=== PATIENT | male | born 1970 | race Caucasian/White ===

== ENCOUNTER → 2018-01-13 14:55 | Outpatient (CLI) | payer OTHER, SELFPAY ==
[2018-01-13 18:01] LABS: Hemoglobin A1c 7.1 % (4.2-6.3)
[2018-01-13 18:02] LABS: Anion Gap 11 (5-15); BUN 21 mg/dL (7-18); Calcium,Total 9.1 mg/dL (8.5-10.1); Chloride 104 mmol/L (98-107); EST Glomerular Filtration Rate 85 mL/min (>60); Est Glom Filt Rate - Afr Amer 103 mL/min (>60); Glucose 88 mg/dL (74-106); Potassium 3.8 mmol/L (3.5-5.1); Sodium Level 141 mmol/L (136-145)
[2018-01-13 19:39] LABS: Absolute Lymphocyte Count 2.08 X10^3/ul (0.83-4.51); Absolute Neutrophil Count 4.4 X10^3/uL (2.0-7.7); Basophil# 0.05 X10^3/uL; Basophil% 0.7 % (0-1); Eosinophil# 0.33 X10^3/uL; Eosinophils% 4.4 % (0-5); Hematocrit 44.7 % (40-54); Hemoglobin 15.8 g/dl (13.0-16.5); Lymphocyte # 2.08 X10^3/ul (4.0); Mean Corp Hgb Conc 35.3 g/gl (32-36); Mean Corpuscular Hgb 29.2 pg (27.0-32.0); Mean Corpuscular Volume 82.5 fL (80-94); Mean Platelet Vol. 9.8 fl (6.2-12.0); Monocyte# 0.52 X10^3/uL; Neutrophil # 4.43 X10^3/uL (2.7-7.7); Neutrophil % 59.6 % (47-70); Platelet Count 364 K/mm3 (150-450); RBC Distribution Width CV 12.9 % (11.6-14.6); RBC Distribution Width SD 38.9 fl (35.1-43.9); Red Blood Count 5.42 M/mm3 (4.6-6.2); White Blood Count 7.4 K/mm3 (4.4-11.0)
[2018-01-13 19:46] LABS: POSITIVE COUNT NO; POSITIVE DIFFERENTIAL NO; POSITIVE MORPHOLOGY NO
== END ==
PROVIDERS: Visit Provider Family Medicine
DX: E11.9 Type 2 diabetes mellitus without complications (principal)
CPT/HCPCS: 36415; 80048; 83036; 85025

== ENCOUNTER → 2021-01-30 09:53 | Outpatient (CLI) | payer BC, SELFPAY ==
[2021-01-30 12:09] LABS: Hematocrit 48.2 % (40-54); Hemoglobin 16.1 g/dL (13.0-16.5); Mean Corp Hgb Conc 33.4 g/dL (32-36); Mean Corpuscular Hgb 27.9 pg (27.0-32.0); Mean Corpuscular Volume 83.5 fL (80-94); Mean Platelet Vol. 9.6 fl (6.2-12.0); Platelet Count 370 K/mm3 (150-450); RBC Distribution Width CV 12.4 % (11.6-14.6); RBC Distribution Width SD 37.2 fl (35.1-43.9); Red Blood Count 5.77 M/mm3 (4.6-6.2); White Blood Count 6.7 K/mm3 (4.4-11.0)
[2021-01-30 12:24] LABS: Hemoglobin A1c 7.6 % (3.8-5.6)
[2021-01-30 12:27] LABS: ALB/GLOB Ratio 1.1 RATIO (0.9-2.4); AST(SGOT) 30 U/L (15-37); Alanine Aminotransfer ALT/SGPT 45 U/L (16-61); Albumin, Serum 3.9 g/dL (3.2-5.0); Alkaline Phosphatase 100 U/L (45-117); Anion Gap 5 (5-15); BUN 22 mg/dL (7-18); BUN/Creat Ratio 22.7 RATIO (10-20); Calcium,Total 9.1 mg/dL (8.5-10.1); Chloride 105 mmol/L (98-107); Cholesterol 182 mg/dL (200); Creatinine, Serum 0.97 mg/dL (0.70-1.30); EST Glomerular Filtration Rate 87 mL/min (>60); Est Glom Filt Rate - Afr Amer 105 mL/min (>60); Globulin 3.7 g/dL (2.2-4.2); Glucose 141 mg/dL (74-106); High Density Lipoprotein 43 mg/dL; Potassium 4.4 mmol/L (3.5-5.1); Protein, Total 7.6 g/dL (6.4-8.2); Sodium Level 137 mmol/L (136-145); T4 Free Direct 1.31 ng/dL (0.76-1.46); Thyroid Stim Hormone (TSH) 1.91 uIU/mL (0.358-3.74); Triglycerides 191 mg/dL; Very Low Density Lipoprotein 38 mg/dL (5-40)
== END ==
PROVIDERS: PCP Nurse Practitioner Family; Referring Provider Nurse Practitioner Family; Visit Provider Nurse Practitioner Family
DX: E03.9 Hypothyroidism, unspecified (principal); Z13.220 Encounter for screening for lipoid disorders; E11.9 Type 2 diabetes mellitus without complications; I10 Essential (primary) hypertension
CPT/HCPCS: 36415; 80053; 80061; 83036; 84439; 84443; 85027

== ENCOUNTER 2021-08-07 09:30 | Outpatient (CLI) | payer BC, SELFPAY ==
[2021-08-07 12:08] LABS: Hematocrit 47.3 % (40-54); Hemoglobin 16.5 g/dL (13.0-16.5); Mean Corp Hgb Conc 34.9 g/dL (32-36); Mean Corpuscular Volume 83.1 fL (80-94); Mean Platelet Vol. 9.7 fl (6.2-12.0); Platelet Count 360 K/mm3 (150-450); RBC Distribution Width CV 12.2 % (11.6-14.6); RBC Distribution Width SD 37.3 fl (35.1-43.9); Red Blood Count 5.69 M/mm3 (4.6-6.2); White Blood Count 5.5 K/mm3 (4.4-11.0)
[2021-08-07 13:11] LABS: ALB/GLOB Ratio 1.1 RATIO (0.9-2.4); AST(SGOT) 17 U/L (15-37); Alanine Aminotransfer ALT/SGPT 28 U/L (16-61); Albumin, Serum 3.8 g/dL (3.2-5.0); Alkaline Phosphatase 87 U/L (45-117); Anion Gap 4 (5-15); BUN 27 mg/dL (7-18); Calcium,Total 8.7 mg/dL (8.5-10.1); Chloride 105 mmol/L (98-107); Cholesterol 173 mg/dL (200); EST Glomerular Filtration Rate 84 mL/min (>60); Est Glom Filt Rate - Afr Amer 101 mL/min (>60); Globulin 3.6 g/dL (2.2-4.2); Glucose 117 mg/dL (74-106); High Density Lipoprotein 43 mg/dL; PSA,Total - Annual Screen 1.46 ng/mL (0.00-4.00); Protein, Total 7.4 g/dL (6.4-8.2); Sodium Level 138 mmol/L (136-145); T4 Free Direct 1.46 ng/dL (0.76-1.46); Triglycerides 107 mg/dL; Very Low Density Lipoprotein 21 mg/dL (5-40)
[2021-08-07 14:07] LABS: Hemoglobin A1c 7.5 % (3.8-5.6)
== END 2021-08-07 23:59 | disposition home or self-care (01) ==
LOC: MTLAB 09:32
PROVIDERS: PCP Nurse Practitioner Family; Referring Provider Nurse Practitioner Family; Visit Provider Nurse Practitioner Family
DX: I10 Essential (primary) hypertension (principal); E11.9 Type 2 diabetes mellitus without complications; E78.1 Pure hyperglyceridemia; E03.9 Hypothyroidism, unspecified; Z12.5 Encounter for screening for malignant neoplasm of prostate
CPT/HCPCS: 36415; 80053; 80061; 83036; 84153; 84439; 84443; 85027; G0103

== ENCOUNTER 2022-04-04 08:30 | Outpatient (CLI) | payer BC, SELFPAY ==
[2022-04-04 10:05] LABS: Hemoglobin A1c 7.9 % (3.8-5.6)
[2022-04-04 10:06] LABS: ALB/GLOB Ratio 1.2 RATIO (0.9-2.4); AST(SGOT) 14 U/L (15-37); Alanine Aminotransfer ALT/SGPT 30 U/L (16-61); Albumin, Serum 3.9 g/dL (3.2-5.0); Alkaline Phosphatase 89 U/L (45-117); Anion Gap 5 (5-15); BUN 24 mg/dL (7-18); BUN/Creat Ratio 22.4 RATIO (10-20); Calcium,Total 9.1 mg/dL (8.5-10.1); Chloride 105 mmol/L (98-107); Cholesterol 207 mg/dL (200); Creatinine, Serum 1.07 mg/dL (0.70-1.30); EST Glomerular Filtration Rate 77 mL/min (>60); Est Glom Filt Rate - Afr Amer 93 mL/min (>60); Globulin 3.3 g/dL (2.2-4.2); Glucose 146 mg/dL (74-106); High Density Lipoprotein 44 mg/dL; Potassium 4.4 mmol/L (3.5-5.1); Protein, Total 7.2 g/dL (6.4-8.2); Sodium Level 140 mmol/L (136-145); T4 Free Direct 1.26 ng/dL (0.76-1.46); Thyroid Stim Hormone (TSH) 2.78 uIU/mL (0.358-3.74); Triglycerides 181 mg/dL; Very Low Density Lipoprotein 36 mg/dL (5-40)
== END 2022-04-04 23:59 | disposition home or self-care (01) ==
LOC: MTLAB 08:32
PROVIDERS: PCP Nurse Practitioner Family; Referring Provider Nurse Practitioner Family; Visit Provider Nurse Practitioner Family
DX: E11.9 Type 2 diabetes mellitus without complications (principal); I10 Essential (primary) hypertension; E78.1 Pure hyperglyceridemia; E03.9 Hypothyroidism, unspecified
CPT/HCPCS: 36415; 80053; 80061; 83036; 84439; 84443

== ENCOUNTER → 2022-11-07 | Outpatient (CLI) | payer BC, SELFPAY ==
[2022-11-07 12:01] LABS: AST(SGOT) 19 U/L (15-37); Alanine Aminotransfer ALT/SGPT 29 U/L (16-61); Albumin, Serum 3.6 g/dL (3.2-5.0); Alkaline Phosphatase 86 U/L (45-117); Anion Gap 5 (5-15); BUN 25 mg/dL (7-18); BUN/Creat Ratio 24.8 RATIO (10-20); Chloride 107 mmol/L (98-107); Cholesterol 197 mg/dL (200); Creatinine, Serum 1.01 mg/dL (0.70-1.30); EST Glomerular Filtration Rate 82 mL/min (>60); Est Glom Filt Rate - Afr Amer 99 mL/min (>60); Globulin 3.5 g/dL (2.2-4.2); Glucose 139 mg/dL (74-106); High Density Lipoprotein 44 mg/dL; PSA,Total - Annual Screen 1.39 ng/mL (0.00-4.00); Potassium 4.2 mmol/L (3.5-5.1); Protein, Total 7.1 g/dL (6.4-8.2); Sodium Level 139 mmol/L (136-145); Thyroid Stim Hormone (TSH) 2.82 uIU/mL (0.358-3.74); Triglycerides 93 mg/dL; Very Low Density Lipoprotein 19 mg/dL (5-40)
[2022-11-07 12:45] LABS: Hemoglobin A1c 9.2 % (3.8-5.6)
== END | disposition home or self-care (01) ==
LOC: MTLAB 09:30
PROVIDERS: PCP Nurse Practitioner Family; Referring Provider Nurse Practitioner Family; Visit Provider Nurse Practitioner Family
DX: E11.9 Type 2 diabetes mellitus without complications (principal); I10 Essential (primary) hypertension; E78.1 Pure hyperglyceridemia; E03.9 Hypothyroidism, unspecified; Z12.5 Encounter for screening for malignant neoplasm of prostate
CPT/HCPCS: 36415; 80053; 80061; 83036; 84153; 84439; 84443; G0103

== ENCOUNTER → 2023-06-30 | Outpatient (CLI) | payer BC, SELFPAY ==
--- NOTE | 2023-06-30 11:41 | EKG12_ITS ---
Test Reason : PRE OP Blood Pressure : / mmHG Vent. Rate : 087 BPM Atrial Rate : 087 BPM P-R Int : 148 ms QRS Dur : 094 ms QT Int : 352 ms P-R-T Axes : 067 074 047 degrees QTc Int : 423 ms Normal sinus rhythm Normal ECG Confirmed by SONDRA SERNA, CLINT ([id number]), city editor JOSE E MCGILL ([id number]) on 07/01/2023 9:01:34 AM Referred By: Kenny Almodovar Confirmed By:CLINT AMARO MD
[2023-06-30 11:46] LABS: Hemoglobin 16.3 g/dL (13.0-16.5); Mean Corpuscular Hgb 28.6 pg (27.0-32.0); Mean Corpuscular Volume 84.2 fL (80-94); Platelet Count 362 K/mm3 (150-450); RBC Distribution Width CV 12.2 % (11.6-14.6); RBC Distribution Width SD 37.3 fl (35.1-43.9); White Blood Count 7.5 K/mm3 (4.4-11.0)
[2023-06-30 12:19] LABS: Anion Gap 6 (5-15); BUN 20 mg/dL (7-18); BUN/Creat Ratio 17.4 RATIO (10-20); Calcium,Total 9.4 mg/dL (8.5-10.1); Chloride 106 mmol/L (98-107); Creatinine, Serum 1.15 mg/dL (0.70-1.30); EST Glomerular Filtration Rate 71 mL/min (>60); Est Glom Filt Rate - Afr Amer 85 mL/min (>60); Glucose 127 mg/dL (74-106); Potassium 4.6 mmol/L (3.5-5.1); Sodium Level 141 mmol/L (136-145)
== END | disposition home or self-care (01) ==
LOC: PSN 11:29
PROVIDERS: PCP Nurse Practitioner Family; Referring Provider Otolaryngology; Visit Provider Otolaryngology
DX: Z01.812 Encounter for preprocedural laboratory examination (principal); Z01.811 Encounter for preprocedural respiratory examination
CPT/HCPCS: 36415; 80048; 85027; 93005

== ENCOUNTER → 2023-07-10 | Outpatient (CLI) | payer BC, SELFPAY ==
--- NOTE | 2023-07-10 | ETH_PTH ---
PATHOLOGY RESULTS PATIENT: JAH DIAZ LOC: [facility] U#:[id number] AGE/SX: 52/M ROOM: RE07/10/[address]: Dr. Kenny Almodovar MD : 1970 BED: DIS: 07/10/2023 SPEC #: [id number] RECD: 07/13/23 08:09 STATUS: HESHAM JOSE M #: [id number] SHANELL: 07/10/23 00:[address]: Kenny Almodovar DEPT: SURGICAL PATHOLOGY RECD BY: Yudith Mclain ENTERED: 07/13/23 08:10 SP TYPE: ETH TISS OTHR DR: Jorge Alberto Purdy, [facility] Tissues: Ethmoid sinus, NOS Procedures: Decalcification bone/plaque Surgery Specimen Level IV HEADER OPERATION: Septoplasty, submucous resection of turbinates PRE-OP DIAGNOSIS: Nasal congestion, deviated nasal septum, hypertrophy of nasal turbinates TISSUE SUBMITTED: Nasal septum MICROSCOPIC DIAGNOSIS Nasal septum, septoplasty: Benign respiratory mucosa with mild chronic inflammation. Fragments of benign hyaline cartilage and bone (clinically deviated septum). AM:jose 07/16/2023 MICROSCOPIC DESCRIPTION Slides are reviewed. GROSS DESCRIPTION Received in fixative is one container labeled with the patient's name and designated nasal septum. The specimen consists of multiple irregular fragments of light downey bone and cartilage that in aggregate measure 5.0 x 3.5 x 0.2 cm. The specimen is totally submitted in two cassettes after decalcification. / AM:jose 07/13/2023 TC:3 CPT: 10868, 11046
== END | disposition home or self-care (01) ==
LOC: LABSPEC 11:35
PROVIDERS: PCP Nurse Practitioner Family; Referring Provider Otolaryngology; Visit Provider Otolaryngology
DX: R09.81 Nasal congestion (principal); J34.2 Deviated nasal septum; J34.3 Hypertrophy of nasal turbinates
CPT/HCPCS: 88305; 88311

== ENCOUNTER → 2023-07-29 | Outpatient (CLI) | payer BC, SELFPAY ==
[2023-07-29 10:48] LABS: AST(SGOT) 24 U/L (15-37); Alanine Aminotransfer ALT/SGPT 29 U/L (16-61); Albumin, Serum 3.7 g/dL (3.2-5.0); Alkaline Phosphatase 96 U/L (45-117); Anion Gap 6 (5-15); BUN 23 mg/dL (7-18); Chloride 108 mmol/L (98-107); Cholesterol 188 mg/dL (200); Creatinine, Serum 0.96 mg/dL (0.70-1.30); EST Glomerular Filtration Rate 87 mL/min (>60); Est Glom Filt Rate - Afr Amer 105 mL/min (>60); Globulin 3.7 g/dL (2.2-4.2); Glucose 113 mg/dL (74-106); High Density Lipoprotein 50 mg/dL; Potassium 3.9 mmol/L (3.5-5.1); Protein, Total 7.4 g/dL (6.4-8.2); Sodium Level 140 mmol/L (136-145); Triglycerides 82 mg/dL; Very Low Density Lipoprotein 16 mg/dL (5-40)
[2023-07-29 11:34] LABS: Microalbumin,Random Urine 33.1 mg/L (NO RANGE EST.); Microalbumin:Creatinine Ratio 13.6 mg/g CRE (<30 mg/g CRE)
== END | disposition home or self-care (01) ==
PROVIDERS: PCP Nurse Practitioner Family; Referring Provider Nurse Practitioner Family; Visit Provider Nurse Practitioner Family
DX: E11.9 Type 2 diabetes mellitus without complications (principal); I10 Essential (primary) hypertension; E78.1 Pure hyperglyceridemia; E03.9 Hypothyroidism, unspecified
CPT/HCPCS: 36415; 80053; 80061; 82043; 82570; 83036; 84439; 84443

== ENCOUNTER 2024-04-20 15:13 | Outpatient (CLI) | payer BC, SELFPAY ==
--- NOTE | 2024-04-20 10:15 | LES_PTH ---
PATIENT: JAH DIAZ LOC: [facility] U#:[id number] AGE/SX: 53/M ROOM: RE04/20/[address]: Dr. Kenny Almodovar MD : 1970 BED: DIS: 04/20/2024 SPEC #: [id number] RECD: 04/21/24 12:01 STATUS: HESHAM JOSE M #: [id number] SHANELL: 04/20/24 10:[address]: Kenny Almodovar DEPT: SURGICAL PATHOLOGY RECD BY: Marine Herman ENTERED: 04/21/24 12:01 SP TYPE: Lesion OTHR DR: Jorge Alberto Purdy, SUPERINTENDENT [employer] Tissues: Skin of face, NOS Procedures: Surgery Specimen Level IV HEADER OPERATION: Permanent pathology PRE-OP DIAGNOSIS: Right face biopsy (skin) TISSUE SUBMITTED: Right face biopsy MICROSCOPIC DIAGNOSIS Right face lesion, biopsy: Basal cell carcinoma, nodular type, extending to the peripheral biopsy margin. See comment. 04/28/2024 COMMENT The specimen is sent to [facility] for expert opinion, reviewed by Dr. Maldonado and the above diagnosis is rendered. The complete report is viewable in the patient's EMR. This case has been reviewed in consultation with Dr. Lozano who concurs with the above diagnosis. IDC:PW MICROSCOPIC DESCRIPTION Slides are reviewed. GROSS DESCRIPTION Received in fixative is one container labeled with the patient's name and designated Face biopsy. The specimen consists of a piece of downey-brown skin measuring 0.2 x 0.2 x 0.1cm. The entire specimen is submitted in one cassette. 04/21/2024 TC:0 [facility]:[id number]
== END 2024-04-20 23:59 | disposition home or self-care (01) ==
LOC: LABSPEC 15:14
PROVIDERS: PCP Nurse Practitioner Family; Referring Provider Otolaryngology; Visit Provider Otolaryngology
DX: Z00.00 Encounter for general adult medical examination without abnormal findings (principal)
CPT/HCPCS: 88305

== ENCOUNTER 2024-05-16 06:53 | Day surgery (SDC) | payer BC, SELFPAY ==
[2024-05-16] VITALS (8 sets, daily range): BP systolic 115–130; BP diastolic 75–101; PULSE 68–80; RESP 14–18; TEMP 36.1–36.6; O2SAT 92–95; BMI 29.4
--- NOTE | 2024-05-16 07:09 | DS.PCM_ITS ---
Providers Primary Care Physician: Jorge Alberto Purdy, [employer] MODEL [employer]KER [employer] Reason For Visit: Excision Right Neck Basal Cell Carcinoma with froz Medications at Discharge Home Medications calcium 600 mg-D3 800 unit-mag11 50 qs-akjx-ixpvmn-princess-s.borat tablet 1 tab PO DAILY 05/13/24 insulin glargine 100 unit/mL (3 mL) subcutaneous pen (Lantus Solostar U-100 Insulin) 50 unit subcut QHS 05/13/24 levocetirizine 5 mg tablet 5 mg PO DAILY PRN allergy symptoms 05/13/24 levothyroxine 100 mcg tablet 100 mcg PO DAILY 05/13/24 D/C Instructions Discharge Diet: No restrictions Discharge Activity: Return to Normal Activity Additional Activity Instructions: Remove and discard dressing tomorrow. Apply antibiotic ointment twice a day to the sutures. May get the incision wet on Thursday. DC O2, CPAP, BIPAP Needs Home O2 Discharge instructions: No Please Follow Up With: Kenny Almodovar MD When: 10 days Meaningful Use Info Meaningful Use Meaningful Use Diagnoses (Choose all that apply): None applicable Ischemic Stroke Statin Dosing Therapy Reference: STATIN DOSE THERAPY REFERENCE: * Patients > 75 years receive moderate or high dose statin therapy. * Patients 75 years or YOUNGER should receive HIGH intensity statin dose unless contraindicated. You will be required to document reason for non-treatment if statin daily dose does not meet guidelines. HIGH DOSE STATIN THERAPY DAILY Atorvastatin > than or = to 40 mg Rosuvastatin > than or = to 20 mg Amlodipine + Atorvastatin > than or = to 2.5/40 mg Ezetimibe + Simvastatin 10/80 mg Simvastatin 80mg Discharge Plan Admission Attending Provider: Kenny Almodovar Primary Care Provider: Jorge Alberto Purdy NP Instructions Print Language: Taiwanese Discharge Orders/Prescriptions Prescriptions: No Action levothyroxine 100 mcg tablet 100 mcg PO DAILY levocetirizine 5 mg tablet 5 mg PO DAILY PRN (Reason: allergy symptoms) [id number]-soex-dyw-kjjg-vkz 600 mg calcium- 800 unit-50 mg tablet 1 tab PO DAILY insulin glargine [Lantus Solostar U-100 Insulin] 100 unit/mL (3 mL) insulin pen 50 unit subcut QHS Referrals / Follow Up: Jorge Alberto Purdy [employer] MODEL MAKER [employer] TESTER, [employer] [Primary Care Provider] - Disposition Disposition (needs filled in before D/C Order can be placed): Home, Self Care
--- NOTE | 2024-05-16 07:25 | PCM.PRE.AN2 ---
ASA Classification* ASA Classification ASA Classification: 2 Assessment & Plan Anesthesia* Anesthesia Assessment Anesthesia Assessment: Discussed sedation and/or anesthesia options, risks, benefits, and alternatives with patient/parents/legal guardian/POA. Questions invited. The patient/parents/legal guardian/POA seems to understand and agrees to proceed with anesthesia plan. Reviewed the physical assessment, medical history, allergy history and patient home medications list prior to surgery/procedure/anesthetic and documented any changes. Performed airway and anesthesia risk assessments. Anesthesia Type Anesthesia Type: General Anesthesia Focused Assessment* Airway Assessment Mouth opens: >3 cm Mallampati Score: II Focused Labs Anesthesia Preop lab: CBC WBC 7.5 K/mm3 (4.4-11.0) 06/30/23 11:31 RBC 5.70 M/mm3 (4.6-6.2) 06/30/23 11:31 Hgb 16.3 g/dL (13.0-16.5) 06/30/23 11:31 Hct 48.0 % (40-54) 06/30/23 11:31 Plt Count 362 K/mm3 (150-450) 06/30/23 11:31 CHEMISTRY Potassium 3.9 mmol/L (3.5-5.1) 07/29/23 07:40 Sodium 140 mmol/L (136-145) 07/29/23 07:40 BUN 23 mg/dL (7-18) H 07/29/23 07:40 Creatinine 0.96 mg/dL (0.70-1.30) 07/29/23 07:40 Glucose 113 mg/dL (74-106) H 07/29/23 07:40 TSH 2.90 uIU/mL (0.358-3.74) 07/29/23 07:40 COAG Pre-Assessment Diagnosis/Proposed Procedure Planned Operative Procedure(s): EXCISION RIGHT NECK BASAL CELL CARCINOMA WITH FROZEN SECTION Anesthesia History Anesthesia History - technical mgr: Anesthesia History - technical mgr Hx Hospitalization No 05/13/24 08:12 Any Problems With Anesthesia No 05/13/24 08:12 Cholinesterase deficiency No 05/13/24 08:12 You/Your Family Experience No 05/13/24 08:12 fever (hyperthermia) with Relationship Recent Exposure to Contagious No 03/21/15 20:50 Disease Does patient have nerve No 05/13/24 08:12 stimulator Patient instructed to have device shut off --Does patient have Pacemaker or ICD? When Was Last Pacemaker Check QUESTION #4 FULL TEXT: You/Your Family Experience fever (hyperthermia) with Anesthesia Last Oral Intake Last Oral intake: Last Oral Intake NPO since Meds taken in AM with sips of water? Meds patient instructed to take am of surgery PONV PONV - technical mgr: PONV - technical mgr Female No 05/13/24 08:12 HX of Motion Sickness No 05/13/24 08:12 HX of N/V After Surgery No 05/13/24 08:12 Non-Smoker Yes 05/13/24 08:12 Duration of Surgery greater No 05/13/24 08:12 than 60 minutes Number of Risk Factors 1 05/13/24 08:12 PONV Score Low Risk 05/13/24 08:12 Height & Weight Height & Weight: Anesthesia: Height & Weight Height 6 ft 2 in 11/14/15 18:37 Respiratory Assessment Respiratory Assessment - technical mgr: Respiratory Tract Infection Hx - technical mgr Hx Respiratory Tract Infection No 05/13/24 08:12 STOP Sleep Apnea STOP Sleep Apnea - technical mgr: STOP Sleep Apnea - technical mgr Hx Hypertension No 05/13/24 08:12 Hx Sleep Apnea No 05/13/24 08:12 CPAP No 03/21/15 23:45 BIPAP No 03/21/15 23:45 Do you snore loudly (louder No 05/13/24 08:12 than talking or can be heard Do you often feel tired/ No 05/13/24 08:12 fatigued/ sleepy during daytime? Has anyone observed you stop No 05/13/24 08:12 breathing during sleep? STOP Results Negative 05/13/24 08:12 QUESTION #5 FULL TEXT : Do you snore loudly (louder than talking or can be heard through closed doors)? Tobacco Use History Tobacco Use History - technical mgr: Tobacco Use History - technical mgr Tobacco Use Smoking Status Never smoker 05/13/24 08:12 Hx Tobacco Use No 05/13/24 08:12 Years Smoking Packs Smoked per Day Smoking Cessation Date was within the last 15 years Hx Smoking Cessation Date Hx Smoking Cessation Counseling Hematologic Medial History Hematologic Hx - technical mgr: Hematologic Medical Hx - telephone mechanic Hx of Blood Transfusion No 05/13/24 08:12 Hx of Transfusion in last 3 No 05/13/24 08:12 Months Date of Last Transfusion (if within last 3 months) Ever experience any problems No 05/13/24 08:12 with transfusion(s)? Specify any problems Hx of Preganancy in last 3 N/A 05/13/24 08:12 Months Nurse Filling Out Transfusion DSCHRIBER 05/13/24 08:12 & Questions: Date: 05/13/24 05/13/24 08:12 Time: 08:14 05/13/24 08:12 Patient unable to answer at this time (ie. confused, unrespo /Reproduction History /Reproductive History - technical mgr: /Reproductive Hx- technical mgr Hx Now No 05/13/24 08:12 Gestational Age (in weeks): EDC: Hx Hx Para Hx Section SAB No 05/13/24 08:12 Active Medications Active Medications: Current Medications Generic Name Dose Route Start Last Admin Trade Name Freq PRN Reason Stop Dose Admin Sodium Chloride 1,000 mls @ 15 mls/hr 05/16/24 07:10 IV 05/19/24 01:49 .Q48H SUKUMAR Protocol PFSH Medical History Cancer Alcohol use Insulin dependent diabetes mellitus Thyroid disease Injury of back Non-smoker Home Medications ?Medication ?Instructions ?Recorded ?Last Taken ?Type calcium 600 mg-D3 800 unit-mag11 1 tab PO DAILY 05/13/24 Unknown History [address]-ligx-wexzgd-princess-s.borat tablet insulin glargine 100 unit/mL (3 50 unit subcut QHS 05/13/24 Unknown History mL) subcutaneous pen (Lantus Solostar U-100 Insulin) levocetirizine 5 mg tablet 5 mg PO DAILY PRN allergy symptoms 05/13/24 Unknown History levothyroxine 100 mcg tablet 100 mcg PO DAILY 05/13/24 Unknown History Allergy/AdvReac Type Severity Reaction Status Date / Time No Known Allergies Allergy Verified 05/16/24 07:21 Surgical History Hx of nasal septoplasty History of surgery History of cochlear implant Hx of appendectomy Hx of discectomy Social History Smoking Status: Never smoker Review of Systems (Anesthesia) ROS Narrative System reviewed and no additional complaints, except as documented.
[2024-05-16] MEDS: 0.9% Normal Saline (1000mL) 1,000 ML 15 ML IV (07:27)
[2024-05-16 07:49] LABS: Hematocrit 46.5 % (40-54); Mean Corp Hgb Conc 34.4 g/dL (32-36); Mean Corpuscular Hgb 28.4 pg (27.0-32.0); Mean Corpuscular Volume 82.4 fL (80-94); Mean Platelet Vol. 9.1 fl (6.2-12.0); Platelet Count 322 K/mm3 (150-450); RBC Distribution Width CV 12.4 % (11.6-14.6); RBC Distribution Width SD 37.2 fl (35.1-43.9); Red Blood Count 5.64 M/mm3 (4.6-6.2); White Blood Count 5.2 K/mm3 (4.4-11.0)
[2024-05-16 07:56] LABS: Bedside Glucose 154 mg/dL (74-106)
[2024-05-16 08:05] LABS: Anion Gap 5 (5-15); BUN 25 mg/dL (7-18); BUN/Creat Ratio 26.8 RATIO (10-20); Calcium,Total 8.8 mg/dL (8.5-10.1); Chloride 107 mmol/L (98-107); Creatinine, Serum 0.93 mg/dL (0.70-1.30); EST Glomerular Filtration Rate 89 mL/min (>60); Est Glom Filt Rate - Afr Amer 108 mL/min (>60); Estimated Creatinine Clearance 116.72 ml/min; Glucose 174 mg/dL (74-106); Potassium 3.8 mmol/L (3.5-5.1); Sodium Level 138 mmol/L (136-145)
--- NOTE | 2024-05-16 08:30 | LES_PTH ---
PATIENT: JAH DIAZ LOC: [facility] [place] U#:[id number] AGE/SX: 53/M ROOM: RE05/16/[address]: Dr. Kenny Almodovar MD : 1970 BED: DIS: 05/16/2024 SPEC #: [id number] RECD: 05/16/24 09:37 STATUS: HESHAM JOSE M #: [id number] SHANELL: 05/16/24 08:[address]: Kenny Almodovar DEPT: SURGICAL PATHOLOGY RECD BY: Joe Root ENTERED: 05/16/24 09:38 SP TYPE: Lesion OTHR DR: Jorge Alberto Purdy, DENTAL TECHNOLOGIST-C Tissues: A - Skin of neck, NOS B - Skin of neck, NOS C - Skin of neck, NOS Procedures: Frozen Section (charge) Frozen Section Add'l ([facility]) Surgery Specimen Level IV HEADER OPERATION: Excision right neck basal cell carcinoma with frozen section PRE-OP DIAGNOSIS: Basal cell carcinoma of skin, right neck TISSUE SUBMITTED: A- Right neck basal cell carcinoma *long stitch- anterior margin at 3o'clock, short stitch- superior margin at 12o'clock, B- Additional anterior margin, C- Additional deep margin FROZEN SECTION DIAGNOSIS A. Right neck lesion, excisional biopsy: Basal cell carcinoma. 3o'clock and deep margin are positive for tumor. B. Additional anterior margin: Negative for carcinoma. C. Additional deep margin: Negative for carcinoma. SJ. 05/16/2024 MICROSCOPIC DIAGNOSIS A. Right neck lesion, excisional biopsy: Basal cell carcinoma. Solar elastosis. See comment. B. Additional anterior margin: Negative for carcinoma. Solar elastosis. C. Additional deep margin: Negative for carcinoma. SJ. 05/17/2024 COMMENT A. The tumor is present at 3o'clock (anterior margin) and deep margins of the specimen. Margins are positive on the frozen sections slides. Please also make reference to previous specimen [id number] right wrist lesion, biopsy with diagnosis of basal cell carcinoma, nodular type. MICROSCOPIC DESCRIPTION Slides are reviewed. GROSS DESCRIPTION A. Received fresh for frozen section diagnosis labeled with the patient's name is a specimen designated Right neck lesion. The specimen consists of a piece of downey-white skin ellipse measuring 3.8 x 1.5 x 0.3cm. The specimen is oriented as follows: long stitch- anterior at 3o'clock and short stitch- superior at 12 o'clock. The specimen is inked as follows: 12o'clock tip- yellow, 6o'clock tip -green, anterior margin 3o'clock- black, posterior margin 9o'clock- blue. The specimen is serially sectioned and submitted entirely for frozen section diagnosis in three cassettes. Cassette 1 contains the 12 and 6o'clock tips. B. Received fresh for frozen section diagnosis labeled with the patient's name is a specimen designated Additional anterior margin right neck. The specimen consists of a strip of downey-white skin measuring 3.2 x 0.3 x 0.4cm. Superior half of specimen is inked black, inferior half is inked blue. The entire specimen is submitted for frozen section diagnosis in one cassette. C. Received fresh for frozen section diagnosis labeled with the patient's name is a specimen designated Additional deep margin. The specimen consists of a piece of pink soft tissue measuring 0.5 x 0.5 x 0.2cm. The entire specimen is submitted for frozen section diagnosis in one cassette. 05/16/2024 TC:0 CPT:00971z7,48624x8,54377b6
--- NOTE | 2024-05-16 08:33 | OP.PCM_ITS ---
Operative Report (Standard) Operative Information Date of Procedure: 05/16/24 Pre-Operative Diagnosis: basal cell carcionma right neck Post-Operative Diagnosis: same Surgery/Procedure Performed: Excision basal cell carcinoma right neck (size of defect = 4.3 x 3.5 cm ) Intermediate repair research pharmacist: No Type of Anesthesia: General RN Documented Start/Stop Times: Operation Date: 05/16/24 08:30 Case Time Into Pre-Op 05/16/24 07:08 Out of Pre-Op 05/16/24 08:33 Anesthesia Start 05/16/24 08:36 Into Room 05/16/24 08:36 Procedure Start 05/16/24 08:58 Procedure Start Time: 08:58 Procedure Stop Time: 10:05 Select all DRAINS/GRAFTS/IMPLANTS that apply: None Estimated Blood Loss: minimal Specimen collected: Yes Description of specimen(s) removed: basal cell carcinoma Description of surgery: The patient was taken to the operating room on 05/16/2024. He was placed in the supine position on the operating table. He was given sufficient general anesthesia. The right neck was prepped and draped sterilely. 1% lidocaine with epinephrine were injected to the skin surrounding the basal cell carcinoma. The lesion was excised with a 15 blade with 5 mm margins circumferentially. Sparing bipolar cautery was used. The specimen was marked and sent for frozen section. Eventually we heard back that the margins were positive at 3:00 and deep. I then sent additional margins anteriorly and deep. We eventually heard back that they were clear. I then extensively undermined anteriorly and posteriorly with sharp scissors. I irrigated the wound with saline. The subcutaneous closure was carried out with interrupted 4-0 Vicryl. The skin was closed with a running and interrupted 6-0 nylon. Antibiotic ointment and a pressure dressing were then applied. The patient was awoken about the recovery room in stable condition. Blood loss minimal, replacement none. Sponge, needle, and instrument count were correct at the end of the procedure. Surgical Findings: basal cell carcinoma Complications Complications: No
[2024-05-16] MEDS: Lidocaine 1% /Epi 1:100 (20ml) 20 ML Vial (08:58)
[2024-05-16] MEDS: BACITRACIN/POLYMYXIN B 15 GM Tube 1 APPLIC (09:14)
--- NOTE | 2024-05-16 10:17 | PCM.POST.ANE ---
Anesthesia: Postop Eval I Current Vital Signs Temperature: 97.8 F Pulse Rate: 80 Blood Pressure: 130/75 Respiratory Rate: 18 Pulse Ox: 93 Assessment Airway patent: Yes Spontaneous unlabored respirations: No nausea: No Vomiting: No Anesthesia Complication: No Fluid Hydration Crystalloid volume administer (ml): 800 Total IV fluid infused: 800 Progress Note Anesthesia document: Postop Eval 1 completed: Yes
--- NOTE | 2024-05-16 10:45 | POSTOPAN2_ITS ---
Anesthesia Postop Eval I Sum Postop Eval Completion status Anesthesia document: Postop Eval 1 completed: Yes Anesthesia Postop Eval I Summary Anesthesia Postop Eval I Summary: Anesthesia Postop Eval I: Assessment Summary Airway patent Yes 05/16/24 10:17 HOSPITAL CARRIER.CSIR Spontaneous unlabored No 05/16/24 10:17 HOSPITAL CARRIER.CSIR respirations Mental status nausea No 05/16/24 10:17 HOSPITAL CARRIER.CSIR Vomiting No 05/16/24 10:17 HOSPITAL CARRIER.CSIR Anesthesia Postop Eval I: Fluid Summary Crystalloid volume administer 800 05/16/24 10:17 HOSPITAL CARRIER.CSIR (ml) Colloids volume administered ( ml) Blood Product volume administered (ml) Total IV fluid infused 800 05/16/24 10:17 HOSPITAL CARRIER.CSIR Anesthesia Postop Eval I: Summary Notes Anesthesia Complication No 05/16/24 10:17 HOSPITAL CARRIER.CSIR Anesthesia Complication Comment: Post-operative progress note Anesthesia: Postop Eval II Evaluation Mental status: Awake Pain Level: 0 nausea: No Vomiting: No
--- NOTE | 2024-05-16 10:45 | PCM.POSTANE2 ---
Anesthesia Postop Eval I Sum Postop Eval Completion status Anesthesia document: Postop Eval 1 completed: Yes Anesthesia Postop Eval I Summary Anesthesia Postop Eval I Summary: Anesthesia Postop Eval I: Assessment Summary Airway patent Yes 05/16/24 10:17 MANAGER CATEGORY.CSIR Spontaneous unlabored No 05/16/24 10:17 MANAGER CATEGORY.CSIR respirations Mental status nausea No 05/16/24 10:17 MANAGER CATEGORY.CSIR Vomiting No 05/16/24 10:17 MANAGER CATEGORY.CSIR Anesthesia Postop Eval I: Fluid Summary Crystalloid volume administer 800 05/16/24 10:17 MANAGER CATEGORY.CSIR (ml) Colloids volume administered ( ml) Blood Product volume administered (ml) Total IV fluid infused 800 05/16/24 10:17 MANAGER CATEGORY.CSIR Anesthesia Postop Eval I: Summary Notes Anesthesia Complication No 05/16/24 10:17 MANAGER CATEGORY.CSIR Anesthesia Complication Comment: Post-operative progress note Anesthesia: Postop Eval II Evaluation Mental status: Awake Pain Level: 0 nausea: No Vomiting: No
== END 2024-05-16 11:56 | disposition home or self-care (01) ==
LOC: SDC 06:54 → AC 06:55
PROVIDERS: PCP Nurse Practitioner Family; Referring Provider Otolaryngology; Visit Provider Otolaryngology
PROC: (CPT 11626; principal; 2024-05-16 08:20)
DX: C44.41 Basal cell carcinoma of skin of scalp and neck (principal); Z79.899 Other long term (current) drug therapy
CPT/HCPCS: 11626; 12044; 00300; 80048; 82962; 85027; 88305; 88331; 88332; J2405

== ENCOUNTER → 2024-06-28 | Outpatient (CLI) | payer BC, SELFPAY ==
[2024-06-28 10:34] LABS: Absolute Lymphocyte Count 1.61 X10^3/uL (0.83-4.51); Absolute Neutrophil Count 3.2 X10^3/uL (2.0-7.7); Basophil# 0.06 X10^3/uL; Basophil% 1.1 % (0-1); Eosinophil# 0.12 X10^3/uL; Eosinophils% 2.2 % (0-5); Hemoglobin 15.7 g/dL (13.0-16.5); Lymphocyte # 1.61 X10^3/ul (0.83-4.51); Lymphocyte % 29.4 % (19-41); Mean Corp Hgb Conc 32.7 g/dL (32-36); Mean Corpuscular Hgb 27.3 pg (27.0-32.0); Mean Corpuscular Volume 83.5 fL (80-94); Mean Platelet Vol. 9.1 fl (6.2-12.0); Monocyte# 0.49 X10^3/uL; NRBC Flagged by Analyzer 0 % (0-5); Neutrophil # 3.17 X10^3/uL (2.7-7.7); Neutrophil % 57.9 % (47-70); Platelet Count 380 K/mm3 (150-450); RBC Distribution Width CV 12.4 % (11.6-14.6); RBC Distribution Width SD 37.2 fl (35.1-43.9); Red Blood Count 5.75 M/mm3 (4.6-6.2); White Blood Count 5.5 K/mm3 (4.4-11.0)
[2024-06-28 10:59] LABS: Microalbumin,Random Urine 14.9 mg/L (NO RANGE EST.); Microalbumin:Creatinine Ratio 6.4 mg/g CRE (<30 mg/g CRE)
[2024-06-28 11:29] LABS: ALB/GLOB Ratio 1.1 RATIO (0.9-2.4); AST(SGOT) 20 U/L (15-37); Alanine Aminotransfer ALT/SGPT 28 U/L (16-61); Albumin, Serum 3.7 g/dL (3.2-5.0); Alkaline Phosphatase 94 U/L (45-117); Anion Gap 8 (5-15); BUN 18 mg/dL (7-18); BUN/Creat Ratio 17.1 RATIO (10-20); Calcium,Total 9.1 mg/dL (8.5-10.1); Chloride 105 mmol/L (98-107); Cholesterol 200 mg/dL (200); Creatinine, Serum 1.05 mg/dL (0.70-1.30); EST Glomerular Filtration Rate 78 mL/min (>60); Est Glom Filt Rate - Afr Amer 94 mL/min (>60); Globulin 3.3 g/dL (2.2-4.2); Glucose 150 mg/dL (74-106); High Density Lipoprotein 50 mg/dL; Potassium 4.4 mmol/L (3.5-5.1); Sodium Level 139 mmol/L (136-145); T4 Free Direct 1.26 ng/dL (0.76-1.46); Triglycerides 105 mg/dL; Very Low Density Lipoprotein 21 mg/dL (5-40)
== END | disposition home or self-care (01) ==
LOC: MTLAB 08:20
PROVIDERS: PCP Nurse Practitioner Family
DX: E10.65 Type 1 diabetes mellitus with hyperglycemia (principal)
CPT/HCPCS: 36415; 80053; 80061; 82043; 82570; 84439; 84443; 85025

== ENCOUNTER → 2024-10-25 | Outpatient (CLI) | payer BC, SELFPAY ==
[2024-10-25 11:04] LABS: Hemoglobin A1c 7.9 % (<=5.6)
[2024-10-25 14:37] LABS: ALB/GLOB Ratio 1.6 RATIO (0.9-2.4); AST(SGOT) 21 U/L (<=37); Alanine Aminotransfer ALT/SGPT 20 U/L (<=46); Albumin, Serum 4.2 g/dL (3.5-5.0); Alkaline Phosphatase 94 U/L (40-129); Anion Gap 10 (5-15); BUN 18 mg/dL (4-19); BUN/Creat Ratio 17.7 RATIO (10-20); Calcium,Total 9.4 mg/dL (7.6-11.0); Carbon Dioxide 24.7 mmol/L (21.0-32.0); Chloride 104 mmol/L (98-108); Creatinine, Serum 1.02 mg/dL (0.70-1.20); EST Glomerular Filtration Rate 87 (>60); Globulin 2.7 g/dL (2.2-4.2); Glucose 146 mg/dL (70-99); Potassium 4.3 mmol/L (3.3-5.1); Protein, Total 6.9 g/dL (5.9-8.4); Sodium Level 139 mmol/L (133-145); Total Bilirubin 0.49 mg/dL (0.00-1.30)
== END | disposition home or self-care (01) ==
LOC: MTLAB 08:09
PROVIDERS: PCP Nurse Practitioner Family; Referring Provider Nurse Practitioner Family; Visit Provider Nurse Practitioner Family
DX: E10.9 Type 1 diabetes mellitus without complications (principal)
CPT/HCPCS: 36415; 80053; 83036

== ENCOUNTER → 2025-04-25 | Outpatient (CLI) | payer BC, SELFPAY ==
[2025-04-25 10:11] LABS: Hematocrit 48.9 % (40-54); Hemoglobin 16.3 g/dL (13.0-16.5); Immature Granulocytes Count 0.020 X10^3/uL (0.0-0.0); Mean Corp Hgb Conc 33.3 g/dL (32-36); Mean Corpuscular Volume 85.0 fL (80-94); Mean Platelet Vol. 9.2 fl (6.2-12.0); NRBC Flagged by Analyzer 0 % (0-5); Platelet Count 350 K/mm3 (150-450); RBC Distribution Width CV 12.5 % (11.6-14.6); RBC Distribution Width SD 38.4 fl (35.1-43.9); Red Blood Count 5.75 M/mm3 (4.6-6.2); White Blood Count 5.5 K/mm3 (4.4-11.0)
[2025-04-25 10:35] LABS: AST(SGOT) 23 U/L (<=37); Alanine Aminotransfer ALT/SGPT 24 U/L (<=46); Albumin, Serum 4.4 g/dL (3.5-5.0); Alkaline Phosphatase 104 U/L (40-129); Anion Gap 10 (5-15); BUN 22 mg/dL (4-19); BUN/Creat Ratio 22.4 RATIO (10-20); Calcium,Total 9.6 mg/dL (7.6-11.0); Carbon Dioxide 26.5 mmol/L (21.0-32.0); Chloride 104 mmol/L (98-108); Cholesterol 221 mg/dL (<=200); Creatinine, Urine (random) 192.00 mg/dL (39.00-259.00); Globulin 2.8 g/dL (2.2-4.2); Glucose 182 mg/dL (70-99); Low Density Lipoprotein Calc. 158 mg/dL; Microalbumin,Random Urine < 12.0 mg/L (<20 mg/L); Potassium 4.5 mmol/L (3.3-5.1); Triglycerides 92 mg/dL; Very Low Density Lipoprotein 18 mg/dL (5-40); cholesterol:hdl ratio screen 4.79
== END | disposition home or self-care (01) ==
LOC: MTLAB 08:42
PROVIDERS: PCP Nurse Practitioner Family; Referring Provider Nurse Practitioner Family; Visit Provider Nurse Practitioner Family
DX: E10.9 Type 1 diabetes mellitus without complications (principal)
CPT/HCPCS: 36415; 80053; 80061; 82043; 82570; 83036; 84439; 84443; 85025